=== PATIENT | male | born 1980 | race Two or more races ===

== ENCOUNTER 2024-04-08 09:53 | Outpatient (AMB) | payer BC, SELFPAY ==
--- NOTE | 2024-04-08 09:54 | MHC.OFFVIS ---
Vital Signs 04/08/24 10:03 Height 5 ft 8 in Weight 201 lb BMI 30.6 BP 149/84 H Blood Pressure Location Rt brachial Position Sitting Pulse 99 Intake Visit Reasons: inguinal hernia Intake Note: Patient referred by [facility] in [place] for Unilateral inguinal hernia. Present for 2m. Patient c/o: hernia from coughing. Devil Tender Required: No Accompanied by: spouse Le Allergies No Known Allergies Allergy (Verified 04/08/24 09:59) HPI Comments Details: Patient presents with the spouse. He has a symptomatic enlarging left inguinal hernia. He has had this a few months time. Because of progression of symptoms he would like to have this surgically addressed. Patient otherwise tolerating a diet. Has regular bowel habits. Patient was have a significant smoking history and has coughing paroxysms which he thinks was responsible for the hernia a few months ago when he had a very violent coughing spell. Chart was reviewed and patient evaluate. One pack per day smoker for 20+ year [facility] Surgical History (Updated 04/08/24 @ 10:13 by Dustin Cortez MD) [place] teeth extracted Social History (Updated 04/08/24 @ 10:02 by CIARA Rinocn) Household Members: Spouse and Children Alcohol intake: current Alcohol type: beer Patient Tobacco Use Status: Current someday Tobacco user Tobacco use type: Cigarette Cigarettes Per Day: 20 Current occupational status: employed Current occupation: auto body Sexual orientation: Straight/Heterosexual Gender identity: Male Physical Exam Vital Signs: Last Vital Signs Pulse 99 04/08/24 10:03 BP 149/84 H 04/08/24 10:03 BMI result Body Mass Index 30.6 Chest Other: Chest breath sounds bilaterally, HS 1 in 2 GI Other: Patient was examined both supine and standing with Valsalva. Abdomen is soft, benign, mildly corpulent. Mild supraumbilical rectus diastasis. Right groin negative. Genitalia within normal limits. Large reducible left inguinal hernia. Assessment & Plan Assessment & Plan (1) Left inguinal hernia: Code(s): K40.90 - Unilateral inguinal hernia, without obstruction or gangrene, not specified as recurrent Category: Surgical Plan Firstly, patient was been strongly encouraged to discontinue smoking or at least trying to cut down next few weeks time. Risks, benefits, and alternatives of open left inguinal hernia repair with mesh were reviewed with the patient and included but not limited to bleeding, infection, recurrence, numbness, pain, scarring and the patient wishes to proceed. All questions answered. Arrangements were made for this on a day which is convenient for him. Coding Level of Care Code New Pt Level 5 (70211) Diagnoses Left inguinal hernia K40.90
[2024-04-08 10:03] VITALS: BP 149/84; PULSE 99; BMI 30.6
== END 2024-04-08 10:12 | disposition home or self-care (01) ==
PROVIDERS: Visit Provider Surgery
DX: K40.90 Unilateral inguinal hernia, without obstruction or gangrene, not specified as recurrent (principal)
CPT/HCPCS: 99204

== ENCOUNTER → 2024-04-08 09:53 | Outpatient (BNVA) | payer BC, SELFPAY | PROVIDERS: Visit Provider Surgery ==

== ENCOUNTER 2024-06-02 12:54 | Outpatient (AMB) | payer BC, SELFPAY ==
--- NOTE | 2024-06-02 13:02 | MHC.OFFVIS ---
Vital Signs 06/02/24 13:07 Height 5 ft 8 in Weight 202 lb 13.204 oz BMI 30.8 BP 140/80 H Blood Pressure Location Lt brachial Position Sitting Pulse 89 Pulse Source Monitor Intake Visit Reasons: [employer] WORK[employer]/ justin/ clear hernia surgery/ abn ekg Allergies avocado Allergy (Severe, Verified 06/02/24 13:10) itchy throat banana Allergy (Severe, Verified 06/02/24 13:10) itchy throat Medication List - Last Reconciled 06/02/24 by Edwin Huffman MD amlodipine 5 mg PO DAILY nicotine topical DAILY nicotine (polacrilex) 2 mg PO ONCE HPI Comments Details: Taran has been referred for evaluation of abnormal EKG. He went to Urgent Care rather for hernia and in that process had an EKG performed which had suggested left ventricular hypertrophy leading to this referral. Patient states he was told to have possibly a cardiac murmur in childhood but not followed up. Otherwise, generally healthy without any limitations. Chronic smoker. Trying to quit. Recently told to have hypertension and started amlodipine. However, he has not taken that regularly-none in the last couple of weeks. Within limits of his activity, he does not have any clear-cut symptoms like angina. He does get short of breath with moderate to severe activity like playing with kids extra and he blames that on smoking. Otherwise, no known coronary disease, myocardial infarction or cardiomyopathy. COUNT INCLUDES THE [facility] Medical History (Updated 06/02/24 @ 13:37 by Edwin Huffman MD) Smoker Primary hypertension Surgical History (Updated 04/08/24 @ 10:13 by Dustin Cortez MD) [place] teeth extracted Family History (Updated 06/02/24 @ 13:13 by Ashli Winter) Mother High blood pressure Father Asthma Brother Diabetes Social History (Updated 04/08/24 @ 10:02 by CIARA Rincon) Household Members: Spouse and Children Alcohol intake: current Alcohol type: beer Patient Tobacco Use Status: Current someday Tobacco user Tobacco use type: Cigarette Cigarettes Per Day: 20 Current occupational status: employed Current occupation: auto body Sexual orientation: Straight/Heterosexual Gender identity: Male Review of Systems Const Denies weakness ENT Denies dizziness Card Denies chest pain, Denies chest pain with activity, Denies syncope, Denies rapid heart rate, Denies pedal edema, Denies edema, Denies leg edema, Denies lightheadedness, Denies palpitations, Denies dyspnea, Reports dyspnea on exertion and Denies orthopnea Resp Denies cough, Denies dyspnea and Reports dyspnea on exertion GI Denies hematochezia and Denies change in stool character Musc Denies abnormal gait, Denies muscle cramps, Denies muscle weakness, Denies numbness, Denies radiating pain into limb and Denies tingling Neuro Denies abnormal gait, Denies dizziness, Denies syncope, Denies numbness, Denies tingling and Denies weakness Endo Denies palpitations Physical Exam Vital Signs: Last Vital Signs Pulse 89 06/02/24 13:07 BP 140/80 H 06/02/24 13:07 BMI result Body Mass Index 30.8 Const General: comfortable and no acute distress Orientation/consciousness: patient oriented x3 HEENT Other: Unremarkable Head: Yes normal to inspection Neck Neck: Yes normal visual inspection Chest Chest palpation & inspection: normal inspection of the chest Resp Auscultation: clear to auscultation bilaterally Cardio Palpation: normal PMI Heart sounds: S1 normal heart sound present, S2 normal heart sound present, no gallops, no murmurs and no rubs GI Palpation (GI): Soft to palpation Back/Spine/Pelvis Other: unremarkable Skin General skin exam: no rashes or lesions noted Neuro General: patient oriented x3 Extrem General: Yes normal to inspection Psych Mental Status: mental status grossly normal Office Procedures EKG Details: EKG with underlying sinus rhythm at 89/Min; voltage criteria for LVH; inferior nonspecific ST-T [place]. [id number], Complete Assessment & Plan Assessment & Plan (1) LVH (left ventricular hypertrophy): Code(s): I51.7 - Cardiomegaly Category: Medical (2) Primary hypertension: Code(s): I10 - Essential (primary) hypertension Category: Medical (3) Smoker: Code(s): F17.200 - Nicotine dependence, unspecified, uncomplicated Category: Social Hx (4) Preoperative cardiovascular examination: Code(s): Z01.810 - Encounter for preprocedural cardiovascular examination Category: Medical Plan Overall, chronic smoker, hypertension-previously not on meds; started Amlodipine but takes irregularly; LVH on EKG; requiring hernia surgery. We will plan on getting an echocardiogram to assess LVEF; left ventricular hypertrophy as well as any valvular dysfunction. Unless any overt abnormalities, she will be able to proceed with hernia surgery. Must stop smoking and we discussed that today. Continue amlodipine for hypertension. During our discussions, I explained to the patient that an echocardiogram is necessary to clarify the EKG findings of potential cardiac hypertrophy. We discussed the impact of hypertension control in preventing further cardiac complications and the importance of adhering to prescribed antihypertensive medication. The patient acknowledged his current challenges with medication compliance and his intention to refocus on consistent treatment. We explored the risks associated with unmanaged hypertension, such as increased likelihood of stroke and heart attack. Smoking cessation support was also emphasized, understanding it remains a significant modifiable risk factor for cardiovascular issues. In upcoming appointments, we'll reassess these strategies focusing on optimizing heart health. Patient was informed and verbally consented to the use of an ambient scribe for clinic note documentation during this visit. Orders: Orders CA echo transthoracic complete Today I51.7 - Cardiomegaly Patient Instructions: - Schedule and undergo an echocardiogram as ordered. - Resume taking amlodipine regularly as prescribed for blood pressure management. - Use nicotine patches consistently to support smoking cessation. - Avoid vigorous activities if experiencing undue distress or shortness of breath. - Follow up with a primary healthcare provider for ongoing support. - Return for scheduled follow-up visits to monitor blood pressure and cardiovascular health. Coding Level of Care Code New Pt Level 4 (89126) Complex EM visit Add On G2211 Diagnoses LVH (left ventricular hypertrophy) I51.7 Primary hypertension I10 Smoker F17.200 Preoperative cardiovascular examination Z01.810 CPT Codes EKG - CPT: 52971-[id number], Complete ([id number])
[2024-06-02 13:07] VITALS: BP 140/80; PULSE 89; BMI 30.8
== END 2024-06-02 13:55 | disposition home or self-care (01) ==
LOC: HO.HCS 12:54
PROVIDERS: Visit Provider Internal Medicine
DX: I51.7 Cardiomegaly (principal); I10 Essential (primary) hypertension; F17.200 Nicotine dependence, unspecified, uncomplicated; Z01.810 Encounter for preprocedural cardiovascular examination
CPT/HCPCS: 93010; 99204

== ENCOUNTER → 2024-06-02 12:54 | Outpatient (BNVA) | payer BC, SELFPAY | PROVIDERS: Visit Provider Internal Medicine | DX: Z01.810 Encounter for preprocedural cardiovascular examination (principal); I51.7 Cardiomegaly; I10 Essential (primary) hypertension; F17.210 Nicotine dependence, cigarettes, uncomplicated | CPT/HCPCS: 93005 ==

== ENCOUNTER → 2024-06-18 13:03 | Outpatient (REF) | payer BC, SELFPAY ==
--- NOTE | 2024-06-18 13:06 | CA_ITS ---
Transthoracic Echocardiogram Patient (Last, First, Middle): Taran Rivero, Gender: Male Date of : 1980 Age: 44 Procedure Date: 06/18/2024 Procedure Type: Transthoracic Echocardiogram Location: OP Height: 172.72 cm Weight: 91.63 kg BSA: 2.05 m2 Heart Rate: bpm BP: 140 / 80 mmHg Cnc Cutting Operator: MARCELA Referring MD: Edwin Huffman MD Health Outreach Worker: Donnell Caraballo MD Symptoms: I51.7 - Cardiomegaly Study Quality: Fair ECG Rhythm: Sinus Conclusions: - Essentially normal study Findings Left Ventricle Normal left ventricular size, thickness, and systolic function. The visually estimated ejection fraction is between 60-65%. Spectral Doppler is indicative of a normal filling pattern. Right Ventricle Normal right ventricular cavity size and systolic function. Atria Both atria are normal in size. Interatrial shunt cannot be excluded. Aortic Valve The aortic valve structure and function is likely normal. There is no aortic valve stenosis. There is no aortic valve regurgitation. Mitral Valve Normal mitral valve structure and function. There is trace mitral valve regurgitation. There is no mitral valve stenosis. Pulmonic Valve The pulmonic valve is likely normal. Tricuspid Valve Normal tricuspid valve structure. Tricuspid regurgitation envelope is inadequate for calculation of right ventricular systolic pressure. Normal right atrial pressure. Great Vessels All visible segments of the aorta are normal in size. The pulmonary artery was not well visualized. Venous The inferior vena cava collapses greater than 50% with inspiration. Inferior vena cava flow is normal. Pericardium/Pleural There is no evidence of pericardial effusion. Prior Study Comparison No prior study available for comparison. Measurements 2D Linear Measurements IVSd: 0.87 0.6-0.9/0.6-1.0 cm LVIDd: 4.76 3.9-5.3/4.2-5.9 cm LVIDd Index: 2.32 2.4-3.2/2.2-3.1 cm/m2 LVIDs: 2.93 2.0-3.6 cm LVPWd: 0.94 0.7-1.1 cm LA Diam: 3.30 2.7-3.8/3.0-4.0 cm LAIDs Index: 1.61 1.5-2.3 cm/m2 LV Mass: 182.23 67-162/88-224 g LV Mass Index: 88.89 43-95/49-115 g/m2 LVOT Diam: 2.00 3.0+(-)1.3 cm 2D Systolic Function EF 4C: 68.50 >55% EF 2C: 60.90 >55% EF BiP: 63.50 >55% Mitral Valve MV Pk E: 0.79 MV PK A: 0.78 MV Decel Time: 279.00 E/A: 1.00 E'Lateral: 12.30 E'Medial: 7.51 E/E' Med: 10.50 E/E' Lat: 6.40 PHT: 82.00 MVA PHT: 2.68 Decel [place]: 2.83 Aortic Valve AoV Pk Timmy: 2.13 AoV Mn Timmy: 1.40 AoV VTI: 0.38 AoV Pk Grad: 18.00 Aov Mn Grad: 9.00 AUDREY Cont.VTI: 2.01 LVOT LVOT Pk Timmy: 1.35 LVOT Mn Timmy: 0.88 LVOT VTI: 0.25 LVOT Pk Grad: 7.00 LVOT Mn Grad: 4.00 LVOT Diam: 2.00 LVOT Area: 3.14 Diastolic Function MV Pk E: 0.79 MV Pk A: 0.78 E/A: 1.00 E'Medial: 7.51 E/E' Med: 10.50 E' Laterial: 12.30 E/E' Lat: 6.40 Right Ventricle TAPSE (mm): 24.80 TVS' Timmy: 11.90 Tricuspid Valve RA Press: 3.00 Great Vessels Aorta Sinus of Valsalva: 2.97 2.0-3.[address] [place]: 2.28 1.7-3.4 cm Ao Asc: 3.10 2.1-3.4 cm Updated in Other Vendor System with Status of Final Donnell Caraballo MD electronically signed on 06/19/2024 2:29:32 PM with status of Final
== END ==
LOC: HO.CARD 13:03
PROVIDERS: Visit Provider Internal Medicine
DX: I51.7 Cardiomegaly (principal)
CPT/HCPCS: 93306

== ENCOUNTER → 2024-06-18 13:06 | Outpatient (BNV) | payer BC, SELFPAY | PROVIDERS: Visit Provider Internal Medicine Cardiovascular Disease | DX: I34.0 Nonrheumatic mitral (valve) insufficiency (principal); I36.1 Nonrheumatic tricuspid (valve) insufficiency | CPT/HCPCS: 93306 ==

== ENCOUNTER 2024-07-24 10:03 | Outpatient (AMB) | payer BC, SELFPAY ==
[2024-07-24 10:06] VITALS: BP 130/96; PULSE 77; RESP 20; TEMP 37.3; O2SAT 96; BMI 31.7
--- NOTE | 2024-07-24 10:06 | A.OFFPC_ITS ---
Vital Signs 07/24/24 10:06 Height 5 ft 8 in Weight 208 lb 12.8 oz BMI 31.7 BP 130/96 H Blood Pressure Location Lt brachial Position Sitting Respiration 20 Pulse 77 Pulse Source Pulse Oximeter Temp 99.2 F Temp Source Oral Pulse Oximetry (%) 96 Oxygen Delivery Method Room Air Intake Visit Reasons: Establish Care Intake Note: Patient is a new patient here to establish care. Patient reports that he has not had a primary care physician in over 20 years; In the interim, patient sought medical care at the emergency department and/or an urgent care facility. Medical records have not been requested and have not been received. Staff Nuclear Weapons Officer Required: No Accompanied by: Self / Same As Patient Allergies avocado Allergy (Severe, Verified 07/24/24 10:36) itchy throat banana Allergy (Severe, Verified 07/24/24 10:36) itchy throat Medication List - Last Reconciled 07/24/24 by MIAN Somers amlodipine 5 mg PO DAILY nicotine 21 mg topical DAILY Tobacco use date assessed: 07/24/24 Dental Screening Dental Screen Date: 07/24/24 Did you have a dental visit in the last 12 months?: No Did you have a dental problem in the last 6 months where you did not have access to dental care?: No Was dental information given to patient?: No HPI Establish Care HPI Details Previous PCP: Patient is a new patient here to establish care. Patient reports that he has not had a primary care physician in over 20 years; In the interim, patient sought medical care at the emergency department and/or an urgent care facility Last visit: Specialist: general surgery for hernia and cardiology due to abnormal EKG urgent care OBGYN:n/a Past medical history: Chronic smoker Medications: Family HX: mother-asthma, high blood pressure, younger brother-DM, Dad-asthma Problem: The patient is a 44-year-old male presenting for evaluation for surgical yovani arance related to a planned hernia repair. He previously sought care at an urgent care facility, where a hernia was diagnosed, and an electrocardiogram demonstrated abnormalities. Subsequent evaluation by a blower operator, including an echocardiogram, revealed no significant findings, affirming cardiac integrity. Essential hypertension has been identified as a contraindication for surgery; however, the patient has not adhered consistently to his prescribed antihypertensive therapy, amlodipine. Attempts to cease smoking have been met with intermittent success using nicotine replacement therapy, though complete cessation has not been achieved. The patient's family medical history includes asthma and hypertension, highlighting a potential genetic predisposition to these conditions. [facility] Medical History (Updated 07/24/24 @ 11:00 by MIAN Somers) Smoker Primary hypertension Surgical History [place] teeth extracted Family History Mother High blood pressure Asthma Father Asthma Brother Diabetes Son Staring episodes Daughter No problems noted. Daughter No problems noted. Social History Household Members: Family Household Members Other:: Girlfriend and 3 children Housing: House Alcohol intake: current Alcohol intake frequency: 3 or more drinks per day Alcohol type: beer Patient Tobacco Use Status: Current someday Tobacco user Tobacco use type: Cigarette Cigarette Packs Per Day: 1 Cigarettes Per Day: 20 e-Cigarette/Vaping Use: Never Used Substance Use Type: Marijuana service: No Current occupational status: employed 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/Heterosexual Gender identity: Male Cognitive needs: No Hearing needs: No Vision needs: No Questionnaire PHQ-9 Over the last 2 weeks, how often have you been bothered by any of the following problems? 1. Little interest or pleasure in doing things: not at all 2. Feeling down, depressed, or hopeless: not at all 3. Trouble falling or staying asleep, or sleeping too much: several days 4. Feeling tired or having little energy: not at all 5. Poor appetite or overeating: not at all 6. Feeling bad about yourself - or that you are a failure or have let yourself or your family down: not at all 7. Trouble concentrating on things, such as reading the newspaper or watching television: not at all 8. Moving or speaking so slowly that other people could have noticed. Or the opposite - being so fidgety or restless that you have been moving around a lot more than usual: not at all 9. Thoughts that you would be better off or of hurting yourself in some way: not at all Total score: 1 Depression Screening Interpretation: Negative Depression Screening Done: Yes 67477 - PHQ-9 Billing: Yes Source: Developed by Drs. Colton Contreras, Margaret Carmona, Suraj Rhoades and colleagues, with an educational flora from [employer]. Thrive Questionnaire Date Thrive assessed: 07/24/24 I am a: Patient What is your living situation today?: I have a steady place to live Within the past 12 months, did the food you bought not last and you didn't have the money to get more?: I choose not to answer this question Within the past 12 months, did you worry whether your food would run out before you got money to buy more?: I choose not to answer this question Do you have trouble paying for medicines?: I choose not to answer this question Do you have trouble getting transportation to medical appointments?: No Do you have trouble paying your heating and electricity bill?: I choose not to answer this question Do you have trouble taking care of your child, family member or friend?: I choose not to answer this question Do you have trouble with day-to-day activities such as bathing, preparing meals, shopping, managing finances, etc.?: No Are you currently unemployed and looking for a job?: No Are you interested in more education?: No Please select the resources that you would like help with: None Currently or been in a relationship where the following occur: I choose not to answer THRIVE Score: 0 AUDIT C Alcohol Use Questionnaire (AUDIT-C) 1. How often do you have a drink containing alcohol?: 4 or more times a week 2. How many drinks containing alcohol do you have on a typical day when you are drinking?: 10 or more 3. How often do you have six or more drinks on one occasion?: Daily or almost daily Total Score: 12 Score Reviewed/Action Taken: Yes LORI-7 AMB Questionnaire LORI-7 Date LORI - 7 assessed: 07/24/24 Feeling nervous, anxious, or on edge: 0 = Not at all Not being able to stop or control worryin = Not at all Worrying too much about different things: 0 = Not at all Trouble relaxin = Not at all Being so restless that it is hard to sit still: 0 = Not at all Becoming easily annoyed or irritable: 1 = Several days Feeling afraid as if something awful might happen: 0 = Not at all Total LORI-7 score (0-4 normal; 5-9 mild; 10-14 moderate; 15-21 severe): 1 Source: Developed by Drs. Colton Contreras, Margaret Carmona, Suraj Rhoades and colleagues, with an educational flora from [employer]. LORI-7 Assessment Billing LORI-7 Assessment Tool: LORI-7 Assessment 16676 Review of Systems Const Denies headache(s) Eyes Denies loss of vision ENT Denies vertigo, Denies dizziness, Denies headache(s) and Denies sore throat Card Denies chest pain, Denies leg edema, Denies lightheadedness and Reports dyspnea on exertion (With lriarxkq-kv-[id number] activity) Resp Reports cough (Occasional attributed to smoking), Denies hemoptysis, Reports dyspnea on exertion (With lotcjtva-xs-jyqwww activity) and Denies wheezing GI Denies abdominal pain, Denies melena, Denies constipation, Denies diarrhea, Denies vomiting and Reports other (Left groin inguinal hernia) Denies dysuria, Denies urinary frequency and Denies urinary urgency Musc Denies arthralgias, Denies joint swelling, Denies numbness and Denies tingling Neuro Denies Abnormal speech present, Denies behavioral changes, Denies vertigo, Denies dizziness, Denies headache(s), Denies loss of vision, Denies memory loss, Denies numbness and Denies tingling Psych Denies anxiety, Denies behavioral changes, Denies depression, Denies memory loss and Denies panic attacks Wenceslao/Lymph Denies easy bleeding and Denies easy bruising Aller/Immun Denies wheezing Physical exam (Primary Care) Vital Signs: Last Vital Signs Temp 99.2 F 07/24/24 10:06 Pulse 77 07/24/24 10:06 Resp 20 07/24/24 10:06 BP 130/96 H 07/24/24 10:06 Pulse Ox 96 07/24/24 10:06 Oxygen Delivery Method Room Air 07/24/24 10:06 BMI result Body Mass Index 31.7 Tobacco/Smoking Status: Tobacco use Status Tobacco use date assessed 07/24/24 07/24/24 10:25 Patient Tobacco Use Status Current someday Tobacco 07/24/24 10:20 Tobacco use type Cigarette 07/24/24 10:20 e-Cigarette/Vaping Use Never Used 07/24/24 10:25 PHQ-9: PHQ-9 Score PHQ-9: Total score 1 07/24/24 10:38 Depression Screening Interpretation: Negative Thrive Assessment: Date of Thrive Assessment Date Thrive assessed 07/24/24 07/24/24 10:25 Currently or been in a relationship where the following occur: I choose not to answer Const General: healthy appearing, no acute distress, alert and awake Nutritional Appearance: well nourished Orientation/consciousness: oriented to person, oriented to place and oriented to time HENMT Ears: TM's normal bilaterally General nose exam: Normal nasal mucous membranes and turbinates present Eyes Conjunctivae: conjunctivae normal Sclerae: sclerae normal Pupils: Equal, round and reactive pupils present Neck Neck: Yes no lymphadenopathy and Yes no JVD Thyroid: Thyroid normal Carotids: no bruits Resp Effort & Inspection: normal respiratory effort and not tachypneic Auscultation: no crackles, no rales, no rhonchi and no wheezes Cardio Rate: regular rate Rhythm: regular rhythm Heart sounds: no murmurs and normal S1 and S2 GI Inspection: Yes other (Supraumbilical rectus diastasis) Palpation (GI): Soft to palpation, nontender, no hepatomegaly and no splenomegaly Auscultation: normal bowel sounds General: Yes no CVA tenderness Male General Exam: Yes hernia (Left groin large reducible hernia) Back/Spine/Pelvis Back: no CVA tenderness Skin General skin exam: no rashes or lesions noted and dry skin Neuro General: oriented to person, oriented to place and oriented to time Cranial nerves: Yes Equal, round and reactive pupils present Speech: No Abnormal speech present Gait exam (Neuro): Normal gait present Motor exam (neuro): no tremor noted Extrem Right upper extremity: full ROM Left upper extremity: full ROM Right lower extremity: full ROM; no edema Left lower extremity: full ROM; no edema Psych Mental Status: mental status grossly normal Speech and movement: Normal speech and movement present Affect: normal affect Attitude: cooperative Thought process: Normal thought process present Coding Level of Care Code New Pt Level 4 (68633) Diagnoses Left inguinal hernia K40.90 LVH (left ventricular hypertrophy) I51.7 Primary hypertension I10 Smoker F17.200 Preoperative clearance Z01.818 Additional Codes LORI-7 Assessment Billing - LORI-7 Assessment Tool: LORI-7 Assessment 03728 ([id number]) PHQ-9 - 43783 - PHQ-9 Billing: Yes ([id number]) Time Spent (min) 41 Assessment & Plan Assessment & Plan (1) Left inguinal hernia: Code(s): K40.90 - Unilateral inguinal hernia, without obstruction or gangrene, not specified as recurrent Category: Surgical Plan: Large left groin reducible hernia. Patient is establishing care due to need for surgical clearance (2) LVH (left ventricular hypertrophy): Code(s): I51.7 - Cardiomegaly Category: Medical Plan: Abnormal EKG done in urgent care and the patient was referred to Cardiology. The patient underwent the echocardiogram with the essential normal findings. (3) Primary hypertension: Code(s): I10 - Essential (primary) hypertension Category: Medical Plan: Patient continues to be hypertensive. Appeared to be struggling with blood pressure medication compliance. Amlodipine 5 mg was refilled for patient to resume taking. Patient to return in 2 weeks for blood pressure evaluation and possibly preop clearance. Reinforced low-salt diet. (4) Smoker: Code(s): F17.200 - Nicotine dependence, unspecified, uncomplicated Category: Social Hx Plan: Encouraged smoking cessation. Nicotine topical 21 mg daily ordered. (5) Preoperative clearance: Code(s): Z01.818 - Encounter for other preprocedural examination Category: Medical Plan: As it related to preop clearance, labs were ordered to further evaluate. The patient amlodipine was also refilled to ensure better blood pressure management prior to surgery. Patient to return in 2 weeks for further evaluation. Orders: Orders Vitamin D 25-OH Total 07/24/24 I10 - Essential (primary) hypertension, F17.200 - Nicotine dependence, unspecified, uncomplicated, K40.90 - Unilateral inguinal hernia, without obstruction or gangrene, not specified as recurrent Complete Blood Count Auto Diff 07/24/24 I10 - Essential (primary) hypertension, F17.200 - Nicotine dependence, unspecified, uncomplicated, K40.90 - Unilateral inguinal hernia, without obstruction or gangrene, not specified as recurrent Comprehensive [place]. Panel Fast 07/24/24 I10 - Essential (primary) hypertension, F17.200 - Nicotine dependence, unspecified, uncomplicated, K40.90 - Unilateral inguinal hernia, without obstruction or gangrene, not specified as recurrent Lipid Panel 07/24/24 I10 - Essential (primary) hypertension, F17.200 - Nicotine dependence, unspecified, uncomplicated, K40.90 - Unilateral inguinal hernia, without obstruction or gangrene, not specified as recurrent TSH reflex Free T4 07/24/24 I10 - Essential (primary) hypertension, F17.200 - Nicotine dependence, unspecified, uncomplicated, K40.90 - Unilateral inguinal hernia, without obstruction or gangrene, not specified as recurrent UA CC w/rflx Micro + Cult 07/24/24 I10 - Essential (primary) hypertension, F17.200 - Nicotine dependence, unspecified, uncomplicated, K40.90 - Unilateral inguinal hernia, without obstruction or gangrene, not specified as recurrent Glucose Fasting 07/24/24 I10 - Essential (primary) hypertension, F17.200 - Nicotine dependence, unspecified, uncomplicated, K40.90 - Unilateral inguinal hernia, without obstruction or gangrene, not specified as recurrent Prothrombin Time INR 07/24/24 Z01.818 - Encounter for other preprocedural examination Medications: New amlodipine 5 mg PO DAILY 60 tabs 0RF Changed From nicotine topical DAILY To nicotine 21 mg topical DAILY 28 ea 2RF
== END 2024-07-24 11:03 | disposition home or self-care (01) ==
DX: K40.90 Unilateral inguinal hernia, without obstruction or gangrene, not specified as recurrent (principal); I51.7 Cardiomegaly; I10 Essential (primary) hypertension; F17.200 Nicotine dependence, unspecified, uncomplicated; Z01.818 Encounter for other preprocedural examination

== ENCOUNTER → 2024-07-24 10:03 | Outpatient (BNVA) | payer BC, SELFPAY | DX: Z01.818 Encounter for other preprocedural examination (principal); I10 Essential (primary) hypertension; F17.210 Nicotine dependence, cigarettes, uncomplicated; K40.90 Unilateral inguinal hernia, without obstruction or gangrene, not specified as recurrent; I51.7 Cardiomegaly; Z71.6 Tobacco abuse counseling | CPT/HCPCS: 96127 ==

== ENCOUNTER 2024-08-07 09:26 | Outpatient (AMB) | payer BC, SELFPAY ==
--- NOTE | 2024-08-07 09:32 | A.OFFPC_ITS ---
Vital Signs 08/07/24 09:34 Height 5 ft 8 in Weight 209 lb 8 oz BMI 31.9 BP 130/80 Blood Pressure Location Lt brachial Position Sitting Respiration 18 Pulse 96 Pulse Source Pulse Oximeter Temp 97.3 F Temp Source Temporal Artery Scan Pulse Oximetry (%) 97 Oxygen Delivery Method Room Air Intake Visit Reasons: blood pressure Intake Note: Patient is here to follow up on Blood pressure. Mannequin Decorator Required: No Coal Getter: Not Required per policy Accompanied by: Self / Same As Patient Allergies avocado Allergy (Severe, Verified 08/07/24 09:50) itchy throat banana Allergy (Severe, Verified 08/07/24 09:50) itchy throat Medication List - Last Reconciled 08/07/24 by MIAN Somers amlodipine 5 mg PO DAILY nicotine 21 mg topical DAILY Tobacco use date assessed: 08/07/24 Dental Screening Dental Screen Date: 07/24/24 HPI blood pressure HPI Details The patient is a 44-year-old male presenting for reevaluation of his essential hypertension and for procedural clearance. He has a history of essential hypertension, currently managed by prescribed amlodipine 5 mg daily, which has shown an appreciable improvement in blood pressure control. He plans to undergo a procedure that necessitates completion of laboratory tests to confirm suitability based on stable blood pressure readings. Additionally, the patient battles nicotine dependence, mentioning an unintentional lapse in nicotine patch usage on the day of the consultation. He plans on putting this on when he gets home. Denies chest pain, SOB, heart palpitation, dizziness [facility] Medical History (Updated 07/24/24 @ 11:00 by MIAN Somers) Smoker Primary hypertension Surgical History [place] teeth extracted Family History Mother High blood pressure Asthma Father Asthma Brother Diabetes Son Staring episodes Daughter No problems noted. Daughter No problems noted. 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/Heterosexual Gender identity: Male Cognitive needs: No Hearing needs: No Vision needs: No Questionnaire PHQ-9 Over the last 2 weeks, how often have you been bothered by any of the following problems? 1. Little interest or pleasure in doing things: not at all 2. Feeling down, depressed, or hopeless: not at all 3. Trouble falling or staying asleep, or sleeping too much: not at all 4. Feeling tired or having little energy: not at all 5. Poor appetite or overeating: not at all 6. Feeling bad about yourself - or that you are a failure or have let yourself or your family down: not at all 7. Trouble concentrating on things, such as reading the newspaper or watching television: not at all 8. Moving or speaking so slowly that other people could have noticed. Or the opposite - being so fidgety or restless that you have been moving around a lot more than usual: not at all 9. Thoughts that you would be better off or of hurting yourself in some way: not at all Total score: 0 Depression Screening Interpretation: Negative Depression Screening Done: Yes Source: Developed by Drs. Colton Contreras, Margaret Carmona, Suraj Rhoades and colleagues, with an educational flora from [employer] Thrive Questionnaire Date Thrive assessed: 04/22/24 I am a: Patient What is your living situation today?: I have a steady place to live Within the past 12 months, did the food you bought not last and you didn't have the money to get more?: I choose not to answer this question Within the past 12 months, did you worry whether your food would run out before you got money to buy more?: I choose not to answer this question Do you have trouble paying for medicines?: I choose not to answer this question Do you have trouble getting transportation to medical appointments?: No Do you have trouble paying your heating and electricity bill?: I choose not to answer this question Do you have trouble taking care of your child, family member or friend?: I choose not to answer this question Do you have trouble with day-to-day activities such as bathing, preparing meals, shopping, managing finances, etc.?: No Are you currently unemployed and looking for a job?: No Are you interested in more education?: No Please select the resources that you would like help with: None Currently or been in a relationship where the following occur: I choose not to answer THRIVE Score: 0 LORI-7 AMB Questionnaire LORI-7 Date LORI - 7 assessed: 07/24/24 Source: Developed by Drs. Colton Contreras, Margaret Carmona, Suraj Rhoades and colleagues, with an educational flora from [employer] Review of Systems Const Denies headache(s) Eyes Denies loss of vision ENT Denies vertigo, Denies dizziness, Denies headache(s) and Denies sore throat Card Denies chest pain, Denies leg edema and Denies lightheadedness Resp Denies cough, Denies hemoptysis and Denies wheezing GI Denies abdominal pain, Denies melena, Denies constipation, Denies diarrhea and Denies vomiting Denies dysuria, Denies urinary frequency, Denies urinary urgency and Reports other (Left groin inguinal hernia ) Neuro Denies vertigo, Denies dizziness, Denies headache(s) and Denies loss of vision Aller/Immun Denies wheezing Physical exam (Primary Care) Vital Signs: Last Vital Signs Temp 97.3 F 08/07/24 09:34 Pulse 96 08/07/24 09:34 Resp 18 08/07/24 09:34 BP 130/80 08/07/24 09:34 Pulse Ox 97 08/07/24 09:34 Oxygen Delivery Method Room Air 08/07/24 09:34 BMI result Body Mass Index 31.9 Tobacco/Smoking Status: Tobacco use Status Tobacco use date assessed 08/07/24 08/07/24 09:38 Patient Tobacco Use Status Current someday Tobacco 08/07/24 09:33 Tobacco use type Cigarette 08/07/24 09:33 e-Cigarette/Vaping Use Never Used 08/07/24 09:33 PHQ-9: PHQ-9 Score PHQ-9: Total score 0 08/07/24 09:56 Depression Screening Interpretation: Negative Thrive Assessment: Date of Thrive Assessment Date Thrive assessed 04/22/24 08/07/24 09:33 Currently or been in a relationship where the following occur: I choose not to answer Const General: healthy appearing, no acute distress, alert and awake Nutritional Appearance: well nourished Orientation/consciousness: oriented to person, oriented to place and oriented to time HENMT Ears: external ears normal General nose exam: Normal external nose present Eyes Conjunctivae: conjunctivae normal Sclerae: sclerae normal Pupils: Equal, round and reactive pupils present Neck Neck: Yes no lymphadenopathy and Yes no JVD Thyroid: Thyroid normal Carotids: no bruits Resp Effort & Inspection: normal respiratory effort and not tachypneic Auscultation: no crackles, no rales, no rhonchi and no wheezes Cardio Rate: regular rate Rhythm: regular rhythm Heart sounds: no murmurs and normal S1 and S2 GI Palpation (GI): Soft to palpation, nontender, no hepatomegaly and no splenomegaly Auscultation: normal bowel sounds General: Yes no CVA tenderness Scrotum: inguinal hernia (Reducible) on the left Back/Spine/Pelvis Back: no CVA tenderness Neuro General: oriented to person, oriented to place and oriented to time Cranial nerves: Yes Equal, round and reactive pupils present Extrem Right lower extremity: full ROM; no edema Left lower extremity: full ROM; no edema Psych Attitude: cooperative Coding Level of Care Code Est Pt Level 3 (89677) Diagnoses Primary hypertension I10 Time Spent (min) 31 Assessment & Plan Assessment & Plan (1) Primary hypertension: Code(s): I10 - Essential (primary) hypertension Category: Medical Plan: Blood pressure 130/80-he was started on amlodipine on his last visit Reinforced low-sodium diet Continue amlodipine to 5 mg. Patient few days a forgetting to take any medication. We will not make any changes at this time time, blood pressure could be slightly better most likely with lifestyle modifications. Medications: Refilled amlodipine 5 mg PO DAILY 60 tabs 3RF
[2024-08-07 09:34] VITALS: BP 130/80; PULSE 96; RESP 18; TEMP 36.3; O2SAT 97; BMI 31.9
== END 2024-08-07 12:15 | disposition home or self-care (01) ==
LOC: HO.HMCH 09:27
DX: I10 Essential (primary) hypertension (principal)

== ENCOUNTER → 2024-08-07 09:26 | Outpatient (BNVA) | payer BC, SELFPAY | DX: Z13.89 Encounter for screening for other disorder (principal) ==

== ENCOUNTER 2024-09-02 13:45 | Outpatient (AMB) | payer BC, SELFPAY ==
--- NOTE | 2024-09-02 14:47 | MHC.OFFVIS ---
Vital Signs 09/02/24 14:50 Height 5 ft 8 in Weight 212 lb 1.355 oz BMI 32.2 BP 120/80 Blood Pressure Location Lt brachial Position Sitting Pulse 90 Pulse Source Pulse Oximeter Pulse Oximetry (%) 93 Oxygen Delivery Method Room Air Intake Visit Reasons: r/s 08/27/24 3 mos followup/echo Allergies avocado Allergy (Severe, Verified 09/02/24 14:51) itchy throat banana Allergy (Severe, Verified 09/02/24 14:51) itchy throat Medication List - Last Reconciled 09/02/24 by Kerline Gutierrez LPN amlodipine 5 mg PO DAILY nicotine 21 mg topical DAILY HPI Comments Details: This is a 44-year-old male patient coming in for a follow-up visit. Patient was previously seen in the office for an abnormal EKG that was noted in the urgent care who is therefore a hernia problem. Patient with otherwise no history of coronary artery disease, cardiomyopathy, or ischemic disease. On the EKG was noted that patient had LVH and therefore was referred to us. Subsequently patient underwent a echocardiogram. Patient is otherwise reporting feeling well overall and denies any cardiac symptoms of exertional chest pain, shortness of breath, palpitations, dizziness, orthopnea, PND, leg edema, presyncope, or syncope. [facility] Medical History Smoker Primary hypertension Surgical History [place] teeth extracted Family History Mother High blood pressure Asthma Father Asthma Brother Diabetes Son Staring episodes Daughter No problems noted. Daughter No problems noted. 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/Heterosexual Gender identity: Male Cognitive needs: No Hearing needs: No Vision needs: No Physical Exam Vital Signs: Last Vital Signs Pulse 90 09/02/24 14:50 BP 120/80 09/02/24 14:50 Pulse Ox 93 09/02/24 14:50 Oxygen Delivery Method Room Air 09/02/24 14:50 BMI result Body Mass Index 32.2 Const General: cooperative, healthy appearing, comfortable and no acute distress Orientation/consciousness: patient oriented x3 HEENT Head: Yes normal to inspection Neck Neck: Yes normal visual inspection, Yes trachea midline and Yes supple Chest Chest palpation & inspection: normal inspection of the chest Resp Effort & Inspection: normal respiratory effort Auscultation: clear to auscultation bilaterally, no crackles, no rales, no rhonchi and no wheezes Cardio Jugular venous distension: no JVD Palpation: normal PMI Rate: regular rate Rhythm: regular rhythm Heart sounds: S1 normal heart sound present, S2 normal heart sound present, no click, no gallops, no murmurs and no rubs Peripheral pulses: Peripheral pulses 2+ throughout GI Inspection: Yes normal to inspection Palpation (GI): Soft to palpation Auscultation: normal bowel sounds Skin General skin exam: no rashes or lesions noted Neuro General: patient oriented x3 Extrem General: Yes normal to inspection, No no pedal edema and No calf tenderness Psych Appearance: grossly normal Mental Status: mental status grossly normal Speech and movement: Normal speech and movement present Assessment & Plan Assessment & Plan (1) LVH (left ventricular hypertrophy): Code(s): I51.7 - Cardiomegaly Category: Medical Plan: EKG at the urgent care as well as here in the office showed underlying sinus rhythm with voltage criteria for LVH. 06/18/2024-patient underwent an echo study which showed a normal LV systolic function with an ejection fraction between 60-65% with no wall motion abnormalities or valvular pathology. Given above findings, no further testing is indicated at this time. (2) Primary hypertension: Code(s): I10 - Essential (primary) hypertension Category: Medical Plan: Blood pressure is well-controlled. Continue amlodipine. Advised monitoring blood pressures at home with a goal of less than 130/80. (3) Preoperative cardiovascular examination: Code(s): Z01.810 - Encounter for preprocedural cardiovascular examination Category: Medical Plan: Reassuring echo findings. Patient can proceed with the hernia repair surgery the consideration that patient is at a low to intermediate cardiac risk. Advised on heart healthy diet, regular exercise, and management of vascular risk factors. Emphasized on complete smoking cessation. Follow up on an as-needed basis. In the interim, patient will call the office with any concerns or change in symptoms. This note was generated using voice recognition software. While every effort has been made to ensure accuracy and proper compensation and hris analyst, there may be occasional errors that could affect the content or meaning of the described symptoms. Coding Level of Care Code Est Pt Level 3 (11993) Complex EM visit Add On G2211 Diagnoses LVH (left ventricular hypertrophy) I51.7 Primary hypertension I10 Preoperative cardiovascular examination Z01.810 Time Spent (min) 28 Comment Time spent in reviewing the chart, test results, assessment, counseling and documentation.
[2024-09-02 14:50] VITALS: BP 120/80; PULSE 90; O2SAT 93; BMI 32.2
== END 2024-09-02 15:05 | disposition home or self-care (01) ==
LOC: HO.HCS 13:46
DX: I51.7 Cardiomegaly (principal); I10 Essential (primary) hypertension; Z01.810 Encounter for preprocedural cardiovascular examination
CPT/HCPCS: 99213

== ENCOUNTER 2024-09-02 15:09 | Outpatient (AMB) | payer BC, SELFPAY ==
[2024-09-02 15:10] VITALS: BP 120/80; PULSE 90; BMI 33.6
--- NOTE | 2024-09-02 15:10 | A.OFFVIS_ITS ---
Vital Signs 09/02/24 15:10 Height 5 ft 8 in Weight 221 lb BMI 33.6 BP 120/80 Blood Pressure Location Lt brachial Position Sitting Pulse 90 Intake Visit Reasons: ingunial hernia Intake Note: Patient previously seen by Dr. Cortez. Here today for re-evaluation of left inguinal hernia. Patient c/o: at times hernia bothersome when bending down. Deburr Operator Required: No Accompanied by: Self / Same As Patient Allergies avocado Allergy (Severe, Verified 09/02/24 15:12) itchy throat banana Allergy (Severe, Verified 09/02/24 15:12) itchy throat Medication List - Last Reconciled 09/02/24 by Babar Perez MD amlodipine 5 mg PO DAILY nicotine 21 mg topical DAILY HPI HPI ingunial hernia: Details: 44-year-old male here for follow-up for his left inguinal hernia. He was actually seen by Dr. Cortez last March, for this reducible left inguinal hernia. He had noticed this starting about January of last year. He says that sometimes the mass would be bigger than other times He describes significant discomfort He was supposed to have left inguinal hernia repair but had to be seen by Cardiology because of some question of EKG changes. He has been cleared by Cardiology so he wants to be scheduled for repair now. He admits to being a smoker. He used to smoke over a pack a day. He says he is down to about half a pack a day. [facility] Medical History Smoker Primary hypertension Surgical History [place] teeth extracted Family History Mother High blood pressure Asthma Father Asthma Brother Diabetes Son Staring episodes Daughter No problems noted. Daughter No problems noted. 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/Heterosexual Gender identity: Male Cognitive needs: No Hearing needs: No Vision needs: No Review of Systems Const Denies chills and Denies fever(s) Card Denies chest pain, Denies dyspnea and Denies dyspnea on exertion Resp Denies cough, Denies dyspnea and Denies dyspnea on exertion GI Denies hematochezia and Denies change in bowel habits Denies hematuria and Denies difficulty urinating Musc Denies back pain and Denies limited range of motion Neuro Denies focal weakness and Denies convulsions Psych Denies depression and Denies mood swings Physical Exam Vital Signs: Last Vital Signs Pulse 90 09/02/24 15:10 BP 120/80 09/02/24 15:10 BMI result Body Mass Index 33.6 Const General: comfortable and no acute distress Orientation/consciousness: patient oriented x3 Neck Neck: Yes no lymphadenopathy Resp Auscultation: clear to auscultation bilaterally Cardio Rhythm: regular rhythm GI Other: Left inguinal hernia, reducible, mildly tender Palpation (GI): Soft to palpation, nontender and no guarding Neuro General: patient oriented x3 Assessment & Plan Assessment & Plan (1) Left inguinal hernia: Code(s): K40.90 - Unilateral inguinal hernia, without obstruction or gangrene, not specified as recurrent Category: Surgical Plan: 44-year-old male with a left inguinal hernia, reducible. He now wants to proceed with repair. He has been cleared by Cardiology. He understands the technique of repair with mesh. He is aware of the risks including but not limited to bleeding, infections, injury to other organs, recurrence, postop pain, as well as the benefits and alternatives. I described to him what to expect postoperatively. He has given consent. Coding Level of Care Code Est Pt Level 3 (93363) Diagnoses Left inguinal hernia K40.90
== END 2024-09-02 15:28 | disposition home or self-care (01) ==
PROVIDERS: Visit Provider Surgery
DX: K40.90 Unilateral inguinal hernia, without obstruction or gangrene, not specified as recurrent (principal)
CPT/HCPCS: 99213

== ENCOUNTER 2024-09-29 08:35 | Day surgery (SDC) | payer BC, SELFPAY ==
[2024-09-25 12:37] VITALS: BMI 33.6
--- NOTE | 2024-09-28 12:35 | HO.ANESPROP2 ---
Documented by User: Gale Looney NP 09/28/24 12:38 HPI - Anesthesia Eval Consult details Narrative: 44 yr old male for left inguinal hernia reducible with mesh LVH on recent EKG: cleared by cardiology 08/2024 Patient can proceed with the hernia repair surgery the consideration that patient is at a low to intermediate cardiac risk. Smoker HTN: well controlled PMFSH Active Problems Active Problems: All Active Problems Preoperative clearance (Acute) Preoperative cardiovascular examination (Acute) LVH (left ventricular hypertrophy) (Acute) Left inguinal hernia (Acute) Smoker (Acute) Primary hypertension (Acute) Past Medical History Medical History LVH (left ventricular hypertrophy) Smoker Primary hypertension Family History Family History Mother High blood pressure Asthma Father Asthma Brother Diabetes Son Staring episodes Daughter No problems noted. Daughter No problems noted. Surgical History Surgical History [place] teeth extracted Social History Social History Household Members: Family Household Members Other:: Girlfriend and 3 children Housing: House Are you a primary animal care technician to a significant other at home: No Do you presently have visiting nurse or other home services: No Alcohol intake: current Alcohol intake frequency: 3 or more drinks per day Alcohol type: beer Patient Tobacco Use Status: Current everyday Tobacco user Tobacco use type: Cigarette Cigarette Packs Per Day: 0.5 Cigarettes Per Day: 6 Smoked in Last 30 Days: Yes e-Cigarette/Vaping Use: Never Used Patient Interested in Nicotine Replacement: No Second Hand Smoke Exposure: Yes Substance Use Type: Marijuana Substance Use Frequency: Daily Have you been hit, kicked, punched, or otherwise hurt by someone within the past year? 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 Gender identity: Male Cognitive needs: No Hearing needs: No Vision needs: No Meds Allergies Allergy/AdvReac Type Severity Reaction Status Date / Time avocado Allergy Severe itchy Verified 09/29/24 08:48 throat banana Allergy Severe itchy Verified 09/29/24 08:48 throat Exam Height,Weight and Vital Signs: Height 5 ft 8 in Weight 100.244 kg Narrative Narrative: ECHO 06/2024 essentially normal study EKG 05/2024 NSR with LVH, consider T wave abnormality, rate 89 Documented by User: Micki Santoyo MD 09/29/24 10:44 PMFSH Past Medical History Medical History LVH (left ventricular hypertrophy) Smoker Primary hypertension Family History Family History Mother High blood pressure Asthma Father Asthma Brother Diabetes Son Staring episodes Daughter No problems noted. Daughter No problems noted. Surgical History Surgical History [place] teeth extracted History of Problems with Anesthesia: No Social History Social History Household Members: Family Household Members Other:: Girlfriend and 3 children Housing: House Are you a primary animal care technician to a significant other at home: No Do you presently have visiting nurse or other home services: No Alcohol intake: current Alcohol intake frequency: 3 or more drinks per day Alcohol type: beer Patient Tobacco Use Status: Current everyday Tobacco user Tobacco use type: Cigarette Cigarette Packs Per Day: 0.5 Cigarettes Per Day: 6 Smoked in Last 30 Days: Yes e-Cigarette/Vaping Use: Never Used Patient Interested in Nicotine Replacement: No Second Hand Smoke Exposure: Yes Substance Use Type: Marijuana Substance Use Frequency: Daily Have you been hit, kicked, punched, or otherwise hurt by someone within the past year? 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 Gender identity: Male Cognitive needs: No Hearing needs: No Vision needs: No Meds Allergies Allergy/AdvReac Type Severity Reaction Status Date / Time avocado Allergy Severe itchy Verified 09/29/24 08:48 throat banana Allergy Severe itchy Verified 09/29/24 08:48 throat Exam Airway Mallampati Class: III TM Dist: >3cm Neck ROM: Full Loose/Missing/Broken Teeth: No Heart: RRR Lungs: CTA Assessment and Plan Assessment Anesthesia Assessment: Anesthesia Plan Discussed and Chart Reviewed Final Anesthetic Review History of Problems with Anesthesia: No NPO: Yes ASA Class: II Final Preanesthetic Review: Meds/Allgs Chart Reviewed, Consent Obtained/Reviewed and Anes Risks/Benef Reviewed Patient Risk: Low Procedure Risk: Low Anesthetic Plan Anesthetic Plan: GA Disposition: Standard PACU
[2024-09-29] VITALS (7 sets, daily range): BP systolic 142–156; BP diastolic 91–104; PULSE 67–87; RESP 15–19; TEMP 36.6–36.8; O2SAT 94–100; BMI 32.5
[2024-09-29] MEDS: Lactated Ringers 1,000 ML 100 ML IVCONT (08:56)
--- NOTE | 2024-09-29 09:58 | MHC.SHP ---
Pre-Procedural Eval Section A - 24 Hr Update-Section A only Date of Service: 09/29/24 Section B - Complete if H&P > 30 days Chief Complaint: Unilateral inguinal hernia, without obstruction Details of Present Illness: Has a reducible left inguinal hernia Relevant Family History (Specify if Yes): No Relevant Social History: None Present Medications: see Short Stay Collaborative assessment Medical History: Significant History (Smoker, LVH, hypertension) Allergies: Allergies Allergy/AdvReac Type Severity Reaction Status Date / Time avocado Allergy Severe itchy Verified 09/29/24 08:48 throat banana Allergy Severe itchy Verified 09/29/24 08:48 throat Review of Systems Sugical H&P ROS: Negative: Constitution, Cardiovascular and Respiratory Exam Surgical H&P Exam: Normal: Heart, Normal: Lungs and Normal: Abdomen (Left inguinal hernia reducible) Plan Diagnosis/Plan: Unchanged I have reviewed the history and physical and performed a pertinent physical examination on my patient. No changes have occurred unless specified. Time Spent With Patient Time: Total time managing care of this patient today ____ minutes.
--- NOTE | 2024-09-29 11:13 | P.OP_ITS ---
Operative Note Operative Note Date of Service: 09/29/24 Narrative: Preop diagnosis: Left inguinal hernia, reducible Postop diagnosis: Left inguinal hernia, reducible, indirect Procedure: Repair of left inguinal hernia with mesh Surgeon: Babar Perez MD speech correction assistant: RADHA Arthur The patient is a 44-year-old male with a reducible mass in the left groin consistent with a left inguinal hernia. He understood the technique of the planned procedure as well as the risks, benefits, and alternatives. He was brought to the operating room. He was placed supine under general anesthesia via laryngeal mask airway. The left groin was prepped and draped in the usual sterile fashion. A surgical time-out was done. The patient received cefazolin 2 g IV preoperatively I infiltrated the planned line of incision with lidocaine 1%. I made a short incision in the skin with a blade 15 along an imaginary line from the the anterior superior iliac spine to the pubic ramus. This was carried down with electrocautery through the full-thickness of the skin and thick subcutaneous fat down to the external oblique aponeurosis. I bluntly dissected the external oblique aponeurosis to define the external ring. I made an incision on the external oblique aponeurosis with a blade 15 overlying the inguinal canal and extended this inferomedially to connect with the external ring. I applied hemostasis on the divided edges of the aponeurosis. I bluntly dissected the und erside of the aponeurosis to create a pocket for the mesh . I then proceeded to bluntly dissect the spermatic cord and its contents with my index finger until was able to pass a Amrita drain around this. The Amrita drain was used for retraction. I identified the vas deferens and the accompanying vessels and these were protected during the dissection. By doing so was able to visualize a hernia which contained fat on the anteromedial aspect. I the hernia from the rest of the cord contents with blunt dissection and electrocautery until was able to reduce this through the internal ring. This was therefore an indirect hernia. I reinforced the internal ring with the medium-sized Prolene plug. The plug was secured with Prolene 2 sutures to the shelving edge of the inguinal gabbi nt laterally and the internal oblique superiorly medially. I reinforced the floor of the canal with a keyhole mesh. The tails of the mesh were passed around the cord at the level of the internal ring and were secured together with Prolene 2 sutures. I secured the mesh to the shelving edge of the inguinal meant laterally and the internal oblique superiorly medially as well as the pubic ramus inferomedially with Prolene 2 sutures We observed for hemostasis. Once hemostasis was confirmed, we irrigated. I reapposed the external oblique aponeurosis with a running Polysorb 2-0 stitch to re-create the external ring The thick subcutaneous layer was reapposed with Polysorb 3-0 simple interrupted sutures. Skin closure was achieved with Polysorb 4-0 subcuticular running stitch The incision was infiltrated with Marcaine 0.5% for postop analgesia. Dressings were applied. The procedure was completed The patient tolerated the procedure well. There were no immediate complications. Initial and final counts of sponges and instruments were correct. Estimated blood loss was less than 25 cc. The patient was extubated without difficulty and transferred to the recovery room with stable vital signs.
== END 2024-09-29 12:36 | disposition home or self-care (01) ==
PROVIDERS: Visit Provider Surgery
PROC: (CPT 49505; principal; 2024-09-29 11:00)
DX: K40.90 Unilateral inguinal hernia, without obstruction or gangrene, not specified as recurrent (principal); I10 Essential (primary) hypertension; I51.7 Cardiomegaly; Z79.899 Other long term (current) drug therapy; F17.210 Nicotine dependence, cigarettes, uncomplicated
CPT/HCPCS: 49505; C1781; J0131; J0690; J1100; J1885; J2003; J2250; J2405; J2704; J2795; J3010

== ENCOUNTER → 2024-09-29 08:35 | Outpatient (BNV) | payer BC, SELFPAY | PROVIDERS: Visit Provider Surgery | DX: K40.90 Unilateral inguinal hernia, without obstruction or gangrene, not specified as recurrent (principal) | CPT/HCPCS: 49505 ==

== ENCOUNTER 2024-10-12 11:29 | Outpatient (AMB) | payer BC, SELFPAY ==
--- NOTE | 2024-10-12 11:35 | A.OFFVIS_ITS ---
Vital Signs 10/12/24 11:41 Weight 219 lb BP 143/86 H Blood Pressure Location Rt brachial Position Sitting Pulse 75 Intake Visit Reasons: S/P LIH w/mesh Intake Note: Patient here s/p repair of left inguinal hernia with mesh. Patient c/o: lt lower abdominal area feels sore. Still taking rx pain meds as needed. Surgery (): 09-29-2024 Geospatial Developer Required: No Accompanied by: Self / Same As Patient Allergies avocado Allergy (Severe, Verified 10/12/24 11:40) itchy throat banana Allergy (Severe, Verified 10/12/24 11:40) itchy throat HPI HPI S/P LIH w/mesh: Details: Mr. Rivero presents for routine follow up. He underwent repair of left inguinal hernia with mesh on 09/29/[address] Perez. He reports significant incisional pain and burning following the procedure. He took percocet for a week and then tylenol for a few days and was comfortable. He currently denies pain but has some mild incisional soreness with movement. He is eating ok. He is moving his bowels normally. He has no concerns. [facility] Medical History (Updated 10/12/24 @ 11:35 by CIARA Rincon) Left inguinal hernia (09/29/24) LVH (left ventricular hypertrophy) Smoker Primary hypertension Surgical History (Updated 10/12/24 @ 11:50 by Deepika Arthur PA-C) [place] teeth extracted Family History Mother High blood pressure Asthma Father Asthma Brother Diabetes Son Staring episodes Daughter No problems noted. Daughter No problems noted. Social History Household Members: Family Household Members Other:: Girlfriend and 3 children Housing: House Are you a primary residential caregiver to a significant other at home: No Do you presently have visiting nurse or other home services: No Alcohol intake: current Alcohol intake frequency: 3 or more drinks per day Alcohol type: beer Patient Tobacco Use Status: Current everyday Tobacco user Tobacco use type: Cigarette Cigarette Packs Per Day: 0.5 Cigarettes Per Day: 6 e-Cigarette/Vaping Use: Never Used Second Hand Smoke Exposure: Yes Substance Use Type: Marijuana service: No Current occupational status: employed 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/Heterosexual Gender identity: Male Cognitive needs: No Hearing needs: No Vision needs: No Review of Systems Const All systems reviewed & are unremarkable except as noted in HPI and below Physical Exam Vital Signs: Last Vital Signs Pulse 75 10/12/24 11:41 BP 143/86 H 10/12/24 11:41 Const General: comfortable, no acute distress and alert Orientation/consciousness: patient oriented x3 Resp Effort & Inspection: normal respiratory effort GI Other: left inguinal incision well healed, mild induration underlying the entire incision, no edema or erythema, no palpable hernia with valsava Inspection: No distended Palpation (GI): Soft to palpation and no guarding Skin General skin exam: no rashes or lesions noted Neuro General: patient oriented x3 and moves all extremities Assessment & Plan Assessment & Plan (1) S/P left inguinal hernia repair: Code(s): Z98.890 - Other specified postprocedural states; Z87.19 - Personal history of other diseases of the digestive system Category: Surgical Plan 44 year old male who is 2 weeks s/p repair of left inguinal hernia with mesh with Dr. Perez. He tolerated the procedure well. His incision site is well healed, he does have some mild induration underlying the entire incision. No evidence of infection or hernia recurrence. He was educated to continue no heavy lifting/strenuous activities for another 4 weeks and then he can gradually resume activities as tolerated. He is doing well post op and can follow up as needed with concerns. He is comfortable with the plan. All questions answered. Coding Level of Care Code Global (41087) Diagnoses S/P left inguinal hernia repair Z98.890; Z87.19
[2024-10-12 11:41] VITALS: BP 143/86; PULSE 75
== END 2024-10-12 11:47 | disposition home or self-care (01) ==
LOC: HO.HGS 11:30
PROVIDERS: Visit Provider Physician Assistant Surgical
DX: Z98.890 Other specified postprocedural states (principal); Z87.19 Personal history of other diseases of the digestive system
CPT/HCPCS: 99024